=== PATIENT | female | born 1990 | race Caucasian/White ===

== ENCOUNTER 2019-04-30 11:09 | Outpatient (CLI) | payer OTHER ==
--- NOTE | 2019-04-30 13:46 | RAD ---
SI JOINTS THREE VIEWS: HISTORY: Sacroiliitis. FINDINGS: The SI joints are patent and symmetric with no evidence of abnormal erosion. No evidence of patholog ic sclerosis identified. IMPRESSION: Unremarkable sacroiliac joints. POS: [id number]
== END 2019-04-30 11:10 | disposition home or self-care (01) ==
LOC: BICRAD 11:09
PROVIDERS: ATTEND Internal Medicine Rheumatology
DX: M46.1 Sacroiliitis, not elsewhere classified (principal)
CPT/HCPCS: 72202